=== PATIENT | male | born 1985 | race Caucasian/White ===

== ENCOUNTER 2018-12-17 20:12 | Emergency (ER) | payer OTHER ==
[2018-12-17 20:27] VITALS: BP 116/80
[2018-12-17] MEDS ORDERED: DOXYcycline CAP(*) 100 MG PO ONE (20:43)
--- NOTE | 2018-12-17 20:44 | UC ---
Bite Injury/Animal HPI - HPI Summary HPI Summary: Pt was bitten by tick w/in 24hrs. and he removed himself at home. He did not think it was engorged. He is asking for prophylaxis. - History of Current Complaint Chief Complaint: [place]o Stated Complaint: TICK BITE Time Seen by Provider: 12/17/18 20:35 Hx Obtained From: Patient Pain Intensity: 2 Pain Scale Used: 0-10 Numeric Onset/Duration: Sudden Onset Type of Bite: Wild Animal - INSECT/TICK Aggravating Factor(s): Nothing Alleviating Factor(s): Nothing Associated Signs And Symptoms: Negative: Fever, Erythema - Allergies/Home Medications Allergies/Adverse Reactions: Allergies Allergy/AdvReac Type Severity Reaction Status Date / Time No Known Allergies Allergy Verified 12/17/18 20:23 PMH/Surg Hx/FS Hx/Imm Hx - Additional Past Medical History Additional PMH: NO CHRONIC ISSUES Previously Healthy: Yes Other History Of: Negative For: HIV, Hepatitis B, Hepatitis C, Anticoagulant Therapy - Surgical History Surgical History: None - Social History Alcohol Use: Occasionally Substance Use Type: None Smoking Status (MU): Never Smoked Tobacco Review of Systems All Other Systems Reviewed And Are Negative: Yes Constitutional: Negative: Fever Skin: Positive: Other - tick bite at R thigh. Negative: Rash Musculoskeletal: Negative: Arthralgia, Myalgia Neurological: Negative: Headache Physical Exam Triage Information Reviewed: Yes Appearance: Well-Appearing Vital Signs: Initial Vital Signs Temp 98.3 F 12/17/18 20:23 Pulse 80 12/17/18 20:23 Resp 16 12/17/18 20:23 BP 116/80 12/17/18 20:23 Pulse Ox 98 12/17/18 20:23 Vital Signs Reviewed: Yes Musculoskeletal: Positive: No Edema - in LE Neurological: Positive: Alert Skin: Positive: Other - small puncture wound from tick bite. no tick embedded during visit.. Negative: Rashes Bite Injury Course/Dx - Course Course Of Treatment: Simple tick bite that was removed w/in 36hrs. Pt. did not know if it was dog vs. deer tick but since [place] endemic [place], offered prophylaxis. He desired tx. rx'd med. we discussed side effects. vitals good. - Differential Dx/Diagnosis Differential Diagnosis/HQI/PQRI: Puncture, Other Provider Diagnosis: Tick bite Discharge - Sign-Out/Discharge Documenting (check all that apply): Patient Departure All imaging exams completed and their final reports reviewed: No Studies - Discharge Plan Condition: Good Disposition: HOME Patient Education Materials: Lyme Disease (ED) Referrals: No Primary Care Phys,NOPCP [Primary Care Provider] - Additional Instructions: follow up with pcp if worsening symptoms. - Billing Disposition and Condition Condition: GOOD Disposition: Home - Attestation Statements Provider Attestation: Per institutional requirements, I have reviewed the chart, however, I was not consulted specifically or made aware of this patient by the midlevel provider. I did not personally evaluate, interact with , or disposition this patient.
== END 2018-12-17 20:52 | disposition home or self-care (01) ==
LOC: UCCORT 20:12
DX: T63.481A Toxic effect of venom of other arthropod, accidental (unintentional), initial encounter (principal); Y92.9 Unspecified place or not applicable
CPT/HCPCS: 99202; A9270-GY; G0463